=== PATIENT | female | born 1995 | race Caucasian/White ===

== ENCOUNTER → 2020-12-14 | Emergency (ER) | payer OTHER ==
[~2020-12-14] VITALS: Ht 160 cm; Wt 55.0 kg
[~2020-12-14] MED LIST: BACI3.5O8 OS; HYDR-2759 PO; IBUP800T19 PO; KETOROLAC 60 MG/2 ML VIAL. IM ONE; MORPHINE SULFATE 4 MG/ML DISP.SYRIN. IM ONE; NEOMY/BACITR/POLYMYXIN OINT PACKET. TP ONE
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
[2020-12-14 12:20] VITALS: BP 126/74
== END ==
LOC: ER 11:20 → MERGE 11:20
DX: T21.21XA Burn of second degree of chest wall, initial encounter (principal); T20.27XA Burn of second degree of neck, initial encounter; X10.0XXA Contact with hot drinks, initial encounter; Y93.89 Activity, other specified; Y92.89 Other specified places as the place of occurrence of the external cause; Y99.8 Other external cause status
CPT/HCPCS: 96372; 99284; J1885; J2270